=== PATIENT | male | born 1980 | race African-American/Black ===

== ENCOUNTER 2019-04-30 08:44 | Emergency (ER) | payer OTHER ==
[~2019-04-30] VITALS: Ht 177.8 cm; Wt 81.6 kg
== END 2019-04-30 14:23 | disposition home or self-care (01) ==
LOC: ER 08:44
DX: M12.572 Traumatic arthropathy, left ankle and foot (principal); S82.492S Other fracture of shaft of left fibula, sequela; W18.2XXS Fall in (into) shower or empty bathtub, sequela